=== PATIENT | male | born 1935 | race Caucasian/White ===

== ENCOUNTER 2024-04-15 18:11 | Inpatient (IN) | payer OTHER, MEDICARE ==
[2024-04-15 18:24] VITALS: RESP 18
[2024-04-15 19:31] LABS: HEMATOCRIT 34.1 % (35.4-49); HEMOGLOBIN 11.5 G/dL (11.7-16.9); MCH 32.1 pg (25.7-33.7); MCHC 33.7 g/dl (32.0-35.9); MEAN CELL VOLUME 95.3 fl (80-96); MEAN PLT VOLUME 7.3 fl (7.5-11.1); PLATELET COUNT 239.4 10^3/uL (134-434); RBC 3.58 10^6/uL (4.00-5.60); RDW 14.6 % (11.9-15.9); WHITE BLOOD COUNT 10.2 10^3/uL (4.0-10.8)
[2024-04-15 20:04] LABS: ALBUMIN 4.2 g/dl (3.4-5.0); BILIRUBIN,TOTAL 0.8 mg/dl (0.2-1); CALCIUM 9.9 mg/dl (8.5-10.1); CREATININE 1.4 mg/dl (0.6-1.3); TOT PROT 6.4 g/dl (6.4-8.2)
[2024-04-15 20:07] LABS: POTASSIUM 2.9 mmol/L (3.5-5.1)
[2024-04-15 20:09] LABS: PLATELET ESTIMATE ADEQUATE
[2024-04-15 20:39] LABS: MAGNESIUM 1.7 mg/dL (1.8-2.4)
[2024-04-15] MEDS ORDERED: MAGNESIUM 1GM/D5W - 1 GM/100 ML IVPB IVPB ONE (20:49)
[2024-04-15] MEDS: MAGNESIUM SULF 50% (8.12 MEQ/2 ML-1 GM VIAL) IVPB ONE (21:04)
[2024-04-15] MEDS ORDERED: KCL 10 MEQ IVPB 10 MEQ/100 ML INFUS.BAG IVPB ONE (21:45)
[2024-04-15] MEDS: KCL 10 MEQ IVPB 10 MEQ/100 ML INFUS.BAG IVPB SCH (21:58)
[2024-04-16 00:10] LABS: HIV INTERPRETATION NEGATIVE (NEGATIVE)
[2024-04-16 08:06] LABS: ALBUMIN 3.8 g/dl (3.4-5.0); BILIRUBIN,TOTAL 0.9 mg/dl (0.2-1); CALCIUM 9.4 mg/dl (8.5-10.1); CREATININE 1.1 mg/dl (0.6-1.3); POTASSIUM 2.9 mmol/L (3.5-5.1); TOT PROT 5.9 g/dl (6.4-8.2)
[2024-04-16 09:29] LABS: BASO % 0.1 % (0-2.0); EOS % 0.3 % (0-4.5); HEMOGLOBIN 11.7 GM/dL (11.7-16.9); LYMPH % 16.8 % (8-40); MCH 31.9 pg (25.7-33.7); MCHC 34.3 g/dl (32.0-35.9); MEAN CELL VOLUME 92.9 fl (80-96); MEAN PLT VOLUME 7.2 fl (7.5-11.1); MONO % 8.2 % (3.8-10.2); NEUT % 74.6 % (42.8-82.8); PLATELET COUNT 249 10^3/uL (134-434); RBC 3.66 M/mm3 (4.00-5.60); RDW 14.6 % (11.9-15.9); WHITE BLOOD COUNT 7.1 K/mm3 (4.0-10.0)
[2024-04-16] MEDS: DUTASTERIDE 0.5 MG CAP (FP) PO SCH (11:25)
[2024-04-16] MEDS: BICALUTAMIDE 50 MG TABLET (FP) PO SCH (11:25)
[2024-04-16] MEDS: ISOSORBIDE MONONITRATE 30 MG TAB.SR.24H (FP) PO SCH (11:25)
[2024-04-16] MEDS: TAMSULOSIN HCL 0.4 MG CAP PO SCH (11:25)
[2024-04-16] MEDS: KCL 10 MEQ IVPB 10 MEQ/100 ML INFUS.BAG IVPB SCH (11:25)
[2024-04-16] MEDS ORDERED: ACETAMINOPHEN 325 MG TABLET (FP) PO PRN (16:15)
[2024-04-16] MEDS: POLYETHYLENE GLYCOL (HEALTHYLAX) 3350 17 GM PACKET PO SCH (17:26)
[2024-04-17 08:27] LABS: HEMATOCRIT 31.4 % (35.4-49); HEMOGLOBIN 10.8 G/dL (11.7-16.9); MCH 32.5 pg (25.7-33.7); MCHC 34.3 g/dl (32.0-35.9); MEAN PLT VOLUME 7.7 fl (7.5-11.1); PLATELET COUNT 215.3 10^3/uL (134-434); RBC 3.31 10^6/uL (4.00-5.60); RDW 14.2 % (11.9-15.9)
[2024-04-17 08:46] LABS: ALBUMIN 3.5 g/dl (3.4-5.0); BILIRUBIN,TOTAL 0.7 mg/dl (0.2-1); CREATININE 0.9 mg/dl (0.6-1.3); POTASSIUM 3.2 mmol/L (3.5-5.1); TOT PROT 5.6 g/dl (6.4-8.2)
[2024-04-17 09:00] LABS: PLATELET ESTIMATE ADEQUATE
[2024-04-17] MEDS: KCL 10 MEQ IVPB 10 MEQ/100 ML INFUS.BAG IVPB SCH (10:14)
[2024-04-17] MEDS: SODIUM CHLORIDE 250 ML IV STA (17:01)
[2024-04-17] MEDS: POTASSIUM CHLORIDE ORAL LIQUID 20 MEQ/15 ML PO ONE (17:01)
[2024-04-18 08:42] LABS: HEMOGLOBIN 11.3 G/dL (11.7-16.9); MCH 32.6 pg (25.7-33.7); MCHC 34.2 g/dl (32.0-35.9); MEAN PLT VOLUME 7.7 fl (7.5-11.1); RBC 3.47 10^6/uL (4.00-5.60); RDW 14.6 % (11.9-15.9); WHITE BLOOD COUNT 4.4 10^3/uL (4.0-10.8)
[2024-04-18 08:56] LABS: ALBUMIN 3.5 g/dl (3.4-5.0); BILIRUBIN,TOTAL 0.5 mg/dl (0.2-1); CREATININE 0.8 mg/dl (0.6-1.3); MAGNESIUM 1.7 mg/dL (1.8-2.4); TOT PROT 5.6 g/dl (6.4-8.2)
[2024-04-18 10:24] VITALS: BP 146/77; PULSE 58; TEMP 98.4
== END 2024-04-18 13:14 | disposition home or self-care (01) | DRG 389 ==
LOC: FER 18:11 → FM/S 23:02 → UNDOADMOB 23:18 → OBSVTOIN 04-16 13:59
PROVIDERS: ADMIT Internal Medicine
DX: K56.41 Fecal impaction (principal); E87.1 Hypo-osmolality and hyponatremia; E83.42 Hypomagnesemia; I10 Essential (primary) hypertension; C61 Malignant neoplasm of prostate; N40.0 Benign prostatic hyperplasia without lower urinary tract symptoms; E78.5 Hyperlipidemia, unspecified; E87.6 Hypokalemia
CPT/HCPCS: 0241U-QW; 36415; 71045-TC-FY; 74177-TC; 80053; 81003; 81015; 82436; 83735; 83930; 83935; 84133; 84300; 84484; 85025; 85027; 86803; 87086; 87389; 93005; 97116-GP; 97162-GP; 99285-25; G0378; Q9967